=== PATIENT | female | born 1960 | race Two or more races ===

== ENCOUNTER 2016-12-01 07:14 | Emergency (ER) | payer OTHER ==
[~2016-12-01] VITALS: Ht 152.4 cm; Wt 62.6 kg
[~2016-12-01 07:14] MED LIST: CIPROFLOXACIN500 M2 ORAL; ZOFRAN ODT4 MG ORAL
[2016-12-01 07:50] VITALS: BP 132/81
[2016-12-01] MEDS ORDERED: VENTOLIN HFA18 GM INH (08:23)
[2016-12-01] MEDS ORDERED: IBUPROFEN600 MG ORAL (08:23)
[2016-12-01] MEDS ORDERED: AZITHROMYCIN250 MG ORAL ×2 (08:23)
[2016-12-01 08:34] VITALS: BP 135/82
--- NOTE | 2016-12-01 10:46 | Emergency Room Report ---
History of Present Illness General Chief Complaint: Upper Respiratory Illness Source: Patient Present Illness HPI 56 YOF walk-in with 5 days of dry cough, sore throat, and subjective fever/ chills. No sick contacts. Non-smoker. No history of asthma or COPD. Didnt take any OTC meds for pain, symptoms. Denies other PMHx. Allergies: Coded Allergies: No Known Allergies (Unverified , 12/28/15) Patient History Past Medical History: none Past Surgical History: none Pertinent Family History: none Social History: Denies: alcohol use, drug use, smoking Last Menstrual Period: na Now: No Immunizations: UTD Reviewed Nursing Documentation: PMH: Agreed, PSxH: Agreed Nursing Documentation-PMH Past Medical History: No History, Except For Hx Cardiac Problems: Yes - high cholesterol Review of Systems All Other Systems: negative except mentioned in HPI Physical Exam Vital Signs Date Time Temp Pulse Resp B/P Pulse Ox O2 Delivery O2 Flow Rate FiO2 12/01/16 07:35 98.1 68 18 133/81 3 Room Air Sp02 EP Interpretation: reviewed, normal General Appearance: normal inspection, well appearing, no apparent distress, alert, GCS 15, non-toxic Head: normocephalic, atraumatic Eyes: bilateral eye EOMI, bilateral eye PERRL ENT: normal ENT inspection, hearing grossly normal, normal pharynx, no angioedema, normal voice, TMs + canals normal, uvula midline, moist mucus membranes Neck: normal inspection, full range of motion, supple, no bony tend Respiratory: normal inspection, chest non-tender, lungs clear, normal breath sounds, no rhonchi, no respiratory distress, no retraction, no accessory muscle use, no wheezing Cardiovascular #1: regular rate, rhythm, no edema Gastrointestinal: normal inspection, normal bowel sounds, non tender, soft, no guarding, no hernia Genitourinary: no CVA tenderness Musculoskeletal: normal inspection, back normal, normal range of motion, Fabiano' s Sign negative Neurologic: normal inspection, alert, oriented x3, responsive, third helper III-XII nml as tested, motor strength/tone normal, speech normal Psychiatric: normal inspection, judgement/insight normal, mood/affect normal Skin: normal inspection, no rash Lymphatic: normal inspection Medical Decision Making Diagnostic Impression: Primary Impression: Community acquired pneumonia ER Course No obvious source of bacterial infection in oropharynx, ears, lungs, skin, abdomen on exam Well appearing However given duration of symptoms, cough and subjective fevers, I'm inclined to Tx with Z-pack for CAP Ventolin as needed for cough PMD followup DC home Understands to return for worsening symptoms Last Vital Signs Date Time Temp Pulse Resp B/P Pulse Ox O2 Delivery O2 Flow Rate FiO2 12/01/16 08:34 72 18 135/82 100 Nasal Cannula 12/01/16 07:50 97.6 Status: improved Disposition: HOME, SELF-CARE Condition: Improved Scripts Albuterol Sulfate (VENTOLIN HFA) 18 Gm Hfa.aer.ad 1 PUFF INH EVERY 6 HOURS for For Cough, #18 GM 0 Refills Prov: TANI SANCHEZ M.D. 12/01/16 Ibuprofen* (MOTRIN*) 600 Mg Tablet 600 MG ORAL THREE TIMES A DAY for sore throat, pain, #30 TAB 0 Refills Prov: TANI SANCHEZ M.D. 12/01/16 Azithromycin* (ZITHROMAX*) 250 Mg Tablet 250 MG ORAL DAILY for 4 Days, TAB 0 Refills Prov: TANI SANCHEZ M.D. 12/01/16 Azithromycin* (ZITHROMAX*) 250 Mg Tablet 500 MG ORAL ONCE for 1 Day, TAB 0 Refills Prov: TANI SANCHEZ M.D. 12/01/16 Referrals: [facility]ERR[facility] (PCP) Patient Instructions: Community-Acquired Pneumonia, Adult, [id number] Additional Instructions: - Take ALL the antibiotics as prescribed - Use Albuterol/ventolin during the day for cough - Take Ibuprofen every 8 hours with food for sore throat, fever/chills, body aches TANI SANCHEZ M.D. Dec 01, 2016 10:46
== END 2016-12-01 08:33 | disposition home or self-care (01) ==
LOC: EMR 07:45
DX: J18.9 Pneumonia, unspecified organism (principal); E78.00 Pure hypercholesterolemia, unspecified
CPT/HCPCS: 99284